=== PATIENT | female | born 1950 | race Caucasian/White ===

== ENCOUNTER 2016-12-30 09:28 | Outpatient (CLI) | payer MEDICARE, BC ==
--- NOTE | 2016-12-30 13:02 | ULT ---
RIGHT UPPER QUADRANT SONOGRAM: HISTORY: Right upper quadrant pain. FINDINGS: Multiple echogenic foci are present within the dependent portion of the gallbladder lumen. There is no gallbladder wall thickening or pericholecystic fluid. The common duct is 0.4 cm diameter. Live r is unremarkable without focal mass or intrahepatic biliary dilatation. No free fluid is evident. IMPRESSION: Cholelithiasis. No evidence of acute biliary obstruction. POS: [facility]
== END 2016-12-30 09:29 | disposition home or self-care (01) ==
LOC: BURULT 09:28
PROVIDERS: ATTEND Family Medicine
DX: R10.11 Right upper quadrant pain (principal); K80.20 Calculus of gallbladder without cholecystitis without obstruction
CPT/HCPCS: 76705

== ENCOUNTER 2017-01-24 12:00 | Outpatient (CLI) | payer MEDICARE, BC ==
[2017-01-24 16:43] LABS: ALT (SGPT) 23 U/L (8-55); AST (SGOT) 23 U/L (5-34); Albumin 4.2 g/dL (3.4-4.8); Alkaline Phosphatase 82 U/L (40-150); Anion Gap 14 mmol/L (10-20); BUN (Urea Nitrogen) 12 mg/dL (9.8-20.1); Calc. Creatinine Clearance 0 mL/min (70-130); Carbon Dioxide 26 mmol/L (23-31); Cardiac Risk 3.3 (Less than 4.5); Chloride 108 mmol/L (98-107); Cholesterol 189 mg/dl (< 200 Desired); Estimated GFR-MDRD 72; Globulin 2.5 g/dL (2.4-3.5); Glucose 119 mg/dL (80-115); HDL Cholesterol 58 mg/dL (>60 Neg Risk); LDL Cholesterol, Calculated 115 mg/dL; Potassium 4.6 mmol/L (3.5-5.1); Protein, Total 6.7 g/dL (6.0-8.3); Sodium 143 mmol/L (136-145); Triglycerides 78 mg/dL (Less than 150)
[2017-01-24 16:48] LABS: #Basophils 0.1 thou/uL (0.0-0.2); #Eosinphils 0.1 thou/uL (0.0-0.7); #Lymphocytes 0.8 thou/uL (1.20-3.40); #Monocytes 0.3 thou/uL (0.11-0.59); #Neutrophils 3.5 thou/uL (1.40-6.50); %Basophils 1.3 % (0.0-1.0); %Monocytes 5.6 % (0.0-10.0); %Neutrophils 73.1 % (42.0-75.0); Anisocytosis SLIGHT = 6-15 cells (100X) (0-5/hpf); Elliptocytes SLIGHT = 2-5 cells (100X) (0-1/hpf); Hemoglobin 10.7 g/dL (12.0-16.0); Hypochromia SLIGHT = 6-15 cells (100X) (0-5/hpf); MDiff Complete? YES; Mean Corpuscular HGB CONC 31.9 g/dL (32.0-36.0); Mean Corpuscular Hemoglobin 24.2 pg (27.0-31.0); Mean Corpuscular Volume 75.8 fl (81.0-99.0); Mean Platelet Volume 8.1 fL (7.4-10.4); Microcytosis SLIGHT = 6-15 cells (100X) (0-5/hpf); Platelet Count 169 thou/uL (130-400); Poikilocytosis SLIGHT = 6-15 cells (100X) (0-5/hpf); RBC Distribution Width 15.6 % (11.5-14.5); Red Blood Cell (RBC) Count 4.43 mill/uL (4.20-5.40); Tear Drops SLIGHT = 2-5 cells (100X) (0-1/hpf); White Blood Cell (WBC) Count 4.8 thou/uL (4.8-10.8)
[2017-01-24 17:09] LABS: Thyroid Stimulating Hormone 0.7934 uIU/mL (0.35-4.94); Vitamin D, 25 Hydroxy 22.5 ng/ml (> 30.0)
[2017-01-24 18:09] LABS: Hep C IgG Ab Non-Reactive (NonReactive); Hep C Index 0.27 S/CO (0-0.79)
== END 2017-01-24 12:01 | disposition home or self-care (01) ==
LOC: LABLEX 12:00
PROVIDERS: ATTEND Family Medicine
DX: D64.9 Anemia, unspecified (principal); I10 Essential (primary) hypertension; M85.80 Other specified disorders of bone density and structure, unspecified site; Z72.89 Other problems related to lifestyle
CPT/HCPCS: 80053; 80061; 82306; 84443; 85025; 86803

== ENCOUNTER 2017-02-09 14:27 | Outpatient (CLI) | payer MEDICARE, BC ==
[2017-02-09 16:30] LABS: Hemoglobin A1c 5.6 % (4.0-6.0)
[2017-02-09 18:02] LABS: Band 1 % (5-11); Elliptocytes SLIGHT = 2-5 cells (100X) (0-1/hpf); Eosinophils 7 % (0-10); Hemoglobin 10.2 g/dL (12.0-16.0); Hypochromia MODERATE=16-30 cells (100X) (0-5/hpf); Lymphocytes 20 % (21-51); MDiff Complete? YES; Mean Corpuscular Hemoglobin 23.3 pg (27.0-31.0); Mean Corpuscular Volume 75.1 fl (81.0-99.0); Mean Platelet Volume 7.6 fL (7.4-10.4); Microcytosis SLIGHT = 6-15 cells (100X) (0-5/hpf); Monocytes 10 % (0-10); Neutrophil 61 % (42-75); Platelet Count 157 thou/uL (130-400); RBC Distribution Width 16.8 % (11.5-14.5); Red Blood Cell (RBC) Count 4.36 mill/uL (4.20-5.40); Tear Drops SLIGHT = 2-5 cells (100X) (0-1/hpf); White Blood Cell (WBC) Count 3.9 thou/uL (4.8-10.8)
== END 2017-02-09 14:28 | disposition home or self-care (01) ==
LOC: LABLEX 14:27
PROVIDERS: ATTEND Family Medicine
DX: D64.9 Anemia, unspecified (principal); R73.09 Other abnormal glucose; R71.8 Other abnormality of red blood cells
CPT/HCPCS: 83036; 85007; 85027

== ENCOUNTER 2017-02-15 08:28 | Outpatient (CLI) | payer MEDICARE, BC ==
[2017-02-15 17:45] LABS: Iron Binding Capacity, Total 404 mcg/dL (265-497)
[2017-02-15 17:46] LABS: Iron 23 ug/dL (50-170)
== END 2017-02-15 08:29 | disposition home or self-care (01) ==
LOC: LABLEX 08:28
PROVIDERS: ATTEND Family Medicine
DX: D50.9 Iron deficiency anemia, unspecified (principal)
CPT/HCPCS: 82728; 83540; 83550

== ENCOUNTER 2020-03-06 10:51 | Outpatient (CLI) | payer MEDICARE, BC, OTHER ==
--- NOTE | 2020-03-06 18:10 | RAD ---
LEFT KNEE TWO VIEWS: 03/06/20 No fracture or joint effusion was seen. There are some small osteophytes present, particularly medial ly and involving the patellofemoral joint. IMPRESSION: Mild arthritic change. POS: HOME
[2020-03-06 20:02] LABS: SARS-CoV-2 IgG Ab Non-Reactive (NonReactive); SARS-CoV-2 IgG Index 0.02 S/CO (< 1.40)
== END 2020-03-06 10:52 | disposition home or self-care (01) ==
LOC: BURRAD 10:51
PROVIDERS: ATTEND Nurse Practitioner
DX: S81.032A Puncture wound without foreign body, left knee, initial encounter (principal); Z01.84 Encounter for antibody response examination; M17.12 Unilateral primary osteoarthritis, left knee
CPT/HCPCS: 36415; 86769